=== PATIENT | male | born 2000 | race African-American/Black ===

== ENCOUNTER 2019-08-02 12:41 | Emergency (ER) | payer SELFPAY ==
[~2019-08-02] VITALS: Ht 172.7 cm; Wt 70.3 kg
--- NOTE | 2019-08-02 13:22 | Diagnostic Imaging Report ---
Exam: Left hand radiographs-3 views History: Trauma. Comparison: None. Findings/Impression: No evidence of acute fracture or malalignment. Soft tissue edema of the hand. Signed by: Dr. Ab Blum MD on 08/02/2019 1:19 PM
--- OUTSIDE RECORDS SUMMARY | 2019-08-07 12:23 | XMS REPORT ---
Author [facility] Address Unknown Phone Unavailable Care Team Providers Care Reshipping Clerk Name Role Phone Monica MUÑOZ Unavailable Unavailable Problems This patient has no known problems. Allergies, Adverse Reactions, Alerts This patient has no known allergies or adverse reactions. Medications This patient has no known medications. Results Test Description Test Time Test Comments Text Results Atomic Results Result Comments HAND 3 VIEW LT - HOPD 2019-08-02 13:17:00 [place] [address] Patient Name: CHARITO MARCANO MR #: [id number] : 2000 Age/Sex: 18/M Req #: [id number] Adm Physician: Ordered by: DARINEL MUÑOZ MD Report #: [id number] Location: [facility] Room/Bed: Procedure: [id number] HOPD/HAND 3 VIEW LT - HOP Exam Date: 08/02/19 Exam Time: 1305 REPORT STATUS: Signed Exam: Left hand radiographs-3 views History: Trauma. Comparison: None. Findings/Impression: No evidence of acute fracture or malalignment. Soft tissue edema of the hand. Signed by: Dr. Sharonda Clayton MD on 08/02/2019 1:19 PM Dictated By: SHARONDA CLAYTON MD [id number] Transcribed By: NAKUL on 08/02/19 1318 COPY TO: DARINEL MUÑOZ MD
== END 2019-08-02 13:22 | disposition home or self-care (01) ==
LOC: FSED 12:41
DX: S60.222A Contusion of left hand, initial encounter (principal); W21.89XA Striking against or struck by other sports equipment, initial encounter; Y92.328 Other athletic field as the place of occurrence of the external cause
CPT/HCPCS: 99283